=== PATIENT | male | born 1985 | race Caucasian/White ===

== ENCOUNTER 2022-08-25 11:43 | Emergency (ER) | payer SELFPAY ==
--- NOTE | ~2022-08-25 | XR_ITS ---
[id number] 08/25/2022 12:18 Indication: Neck stiffness Procedure: 4 view cervical spine Comparison: No prior studies for comparison. Findings: Vertebral body and disc heights are preserved. No fracture, subluxation or dislocation. No prevertebral soft tissue swelling. Lung apices are normal. Odontoid process is normal. Lateral masses normally aligned. Impression: 1: No acute abnormality of the cervical spine. Reviewed, dictated and finalized at location A. Impression: 1: No acute abnormality of the cervical spine.
[2022-08-25 11:43] VITALS: BP 141/84; PULSE 75; RESP 18; TEMP 37.1; O2SAT 97
[2022-08-25] MEDS: ORPHENADRINE CITRATE 30 MG/ML 2 ML VIAL 60 MG IM (12:19)
[2022-08-25] MEDS: KETOROLAC (*BKC) 60 MG/2 ML VIAL IM (12:20)
--- NOTE | 2022-08-25 12:25 | ED.NECK ---
HPI - Neck Pain/Injury General Chief Complaint: Neck Pain/Injury Stated Complaint: neck pain Time Seen by Provider: 08/25/22 11:52 Source: patient Mode of arrival: ambulatory Limitations: no limitations History of Present Illness HPI Narrative: This is a 37-year-old male who presents with neck stiffness torticollis spasm like picture that occurred over the last couple days woke up this morning with stiffness of his neck area with some decreased range of motion because of spasm no known injury no fever chills no headache no blurry vision no weakness in his arms or legs. complaint: neck pain Onset (ago): day(s) Place: home Severity: moderate Quality: aching and spasming Duration: constant Relieving factors: immobilization and medication OTC/prescribed Related Data Allergies Allergy/AdvReac Type Severity Reaction Status Date / Time No Known Allergies Allergy Mild Verified 08/25/22 12:15 Review of Systems Review of Systems: All systems reviewed & are unremarkable except as noted in HPI and below PMFSH Past Medical History Medical History Patient denies medical problems Exam Const: General: healthy appearing Nutritional Appearance: well nourished Orientation/consciousness: patient oriented x3 HENMT: Head: normal to inspection Eyes: Conjunctivae: conjunctivae normal EOM: EOMs intact bilaterally Neck: Neck: normal visual inspection Other: tenderness right side of neck area with no known injury with some muscle spasm Chest: Chest palpation & inspection: normal inspection of the chest Resp: Effort & Inspection: normal respiratory effort Auscultation: clear to auscultation bilaterally Cardio: Rate: regular rate Rhythm: regular rhythm GI: GI Palp: Yes Soft to palpation : General: Yes bladder normal to palpation Back/Spine/Pelvis: Back: no CVA tenderness Skin: General skin exam: normal color Rashes: no rashes Neuro: General: patient oriented x3 Cranial nerves: Yes Nystagmus not present Extrem: General: normal to inspection Course Course Emergency Course: patient received a dose of IM Toradol and IM muscle relaxer x-ray of the cervical spine shows no acute abnormalities. Critical Care Time Critical Care Time Critical Care Time: No Discharge Plan Discharge Clinical Impression: Muscle spasm, Acute torticollis Patient Disposition: Home, Self-Care Condition: Stable Instructions: Antibiotic Form Additional Instructions: advised to take medicine as prescribed and to establish with primary for further evaluation and treatment if symptoms persist or worsen. Prescriptions: New tramadol 50 mg tablet 50 mg PO Q6H PRN (Reason: pain) Qty: 20 0RF cyclobenzaprine 10 mg tablet 10 mg PO TID Qty: 20 0RF Follow-up/Referrals: UNKNOWN,DOCTOR [Primary Care Provider] - Time of Disposition: 12:33
[2022-08-25 12:50] VITALS: BP 122/76; PULSE 60; RESP 17; TEMP 36.4; O2SAT 99
== END 2022-08-25 12:53 | disposition home or self-care (01) ==
PROVIDERS: Emergency Provider Emergency Medicine
DX: M62.838 Other muscle spasm (principal); M43.6 Torticollis
CPT/HCPCS: 72040; 96372; 99284; J1885; J2360